=== PATIENT | female | born 1990 | race Caucasian/White ===

== ENCOUNTER 2018-04-13 07:52 | Emergency (ER) | payer SELFPAY ==
[~2018-04-13] VITALS: Ht 172.7 cm; Wt 70.0 kg
[~2018-04-13 07:52] MED LIST: HYDR1TAB PO; MECL12.5 PO
[2018-04-13] MEDS ORDERED: AMOX-419 PO (08:23)
[2018-04-13 08:34] VITALS: BP 124/68
== END 2018-04-13 08:30 | disposition home or self-care (01) ==
LOC: ER 07:53
DX: H66.91 Otitis media, unspecified, right ear (principal); H72.91 Unspecified perforation of tympanic membrane, right ear; Z79.899 Other long term (current) drug therapy
CPT/HCPCS: 96372; 99284

== ENCOUNTER 2018-04-15 04:38 | Emergency (ER) | payer OTHER ==
[~2018-04-15] VITALS: Ht 172.7 cm; Wt 69.2 kg
[~2018-04-15 04:38] MED LIST changes: +AMOX-419 PO
[2018-04-15] MEDS ORDERED: iohexol 300mg/ml 100ml inj. ONE (07:25)
[2018-04-15 07:34] LABS: URINE HCG NEGATIVE (NEG)
[2018-04-15] MEDS ORDERED: OFLO5DRO EACH EAR (08:49)
[2018-04-15] MEDS ORDERED: ketorolac trometh inj. 60 MG/2 ML VIAL IM ONE (09:10)
[2018-04-15 09:32] VITALS: BP 116/69
== END 2018-04-15 09:34 | disposition home or self-care (01) ==
LOC: ER 04:39
DX: H66.91 Otitis media, unspecified, right ear (principal); H72.91 Unspecified perforation of tympanic membrane, right ear; H60.91 Unspecified otitis externa, right ear; Z79.899 Other long term (current) drug therapy
CPT/HCPCS: 70482; 81025; 96372; 99285; J1885; J7030; Q9967